=== PATIENT | male | born 1975 | race Hispanic/Latino ===

== ENCOUNTER 2019-04-13 10:50 | Emergency (ER) | payer OTHER ==
[2019-04-13] MEDS ORDERED: KETOROLAC TROMETHAMINE 60 MG/2 ML VIAL ONE (11:56)
[2019-04-13] MEDS ORDERED: LIDOCAINE 5% TOPICAL PATCH TP ONE (11:56)
[2019-04-13] MEDS ORDERED: DIAZEPAM 5 MG TABLET ONE (11:56)
== END 2019-04-13 12:26 | disposition home or self-care (01) ==
LOC: EDH 10:50
DX: M62.830 Muscle spasm of back (principal)
CPT/HCPCS: 96372; 99283; J1885

== ENCOUNTER 2025-02-09 07:29 | Emergency (ER) | payer BC, OTHER ==
[~2025-02-09] VITALS: Ht 177.8 cm; Wt 104.3 kg
--- NOTE | 2025-02-09 07:40 | ERN ---
General Chief Complaint: Back Pain-No Injury Stated Complaint: CHRONIC BACK PAIN, RT SCIATICA Time Seen by MD: 07:31 Source: patient History of Present Illness Initial Comments PATIENT IS A 50-YEAR-OLD MALE COMING IN COMPLAINING OF RIGHT-SIDED LOWER BACK AND RIGHT-SIDED GLUTEAL DISCOMFORT WERE IN THE IN THE RIGHT LEG. PER PATIENT HE HAS A HISTORY OF RIGHT-SIDED SCIATICA AND USUALLY GETS INJECTIONS FOR THE PAIN. ON THIS OCCASION THE FLARE-UP BEGAN TWO DAYS AGO IN HIS HAS BEEN PROGRESSIVELY GETTING WORSE. Allergies: Coded Allergies: No Known Allergies (Unverified Allergy, Unknown, 02/09/25) Past Medical History Past Medical History: Other Medical History Other: CHRONINC BACK PAIN Past Surgical History: Other Surgical History Other: HERNIA ROS Dictation CONSTITUTIONAL: NO CHILLS, NO FEVER, NO WEAKNESS, NO DIAPHORESIS, NO MALAISE. HEAD/FACE: NO SIGNS OF TRAUMA. EENT: NO EYE PAIN, NO BLURRED VISION, NO TEARING, NO DOUBLE VISION, NO EAR PAIN, NO EAR DISCHARGE, NO NOSE PAIN, NO NASAL CONGESTION, NO THROAT PAIN, NO THROAT SWELLING, NO MOUTH PAIN. RESPIRATORY: NO COUGH, NO ORTHOPNEA, NO SOB, NO STRIDOR, NO WHEEZING. CARDIOVASCULAR: NO CHEST PAIN, NO EDEMA, NO PALPITATIONS, NO SYNCOPE. GASTROINTESTINAL/ABDOMINAL: NO ABDOMINAL PAIN, NO CONSTIPATION, NO DIARRHEA, NO NAUSEA, NO VOMITING. GENITOURINARY: NO ABNORMAL DISCHARGE, NO DYSURIA, NO FREQUENT URINATION, NO HEMATURIA. NO COMPLAINTS OF PAIN IN THE GENITALS. MUSCULOSKELETAL: NO BACK PAIN, NO GOUT, NO JOINT PAIN, NO JOINT SWELLING, NO MUSCLE PAIN, NO MUSCLE STIFFNESS, NO NECK PAIN. INTEGUMENTARY: NO CHANGE IN COLOR, NO CHANGE IN HAIR/NAILS, NO DRYNESS, NO LESION, NO LUMPS, NO RASH. NEUROLOGICAL/PSYCH: NO ANXIETY, NOT DEPRESSED, NO EMOTIONAL PROBLEM, NO HEADACHE, NO NUMBNESS, NO PRE-EXISTING DEFICIT, NO HISTORY OF SEIZURES, NO TREMORS, NO WEAKNESS. HEMATOLOGIC/LYMPHATIC: NOT ANEMIC, NO HISTORY OF BLOOD CLOTS, NO APPARENT BLEEDING, NO BRUISING, GLANDS NOT SWOLLEN. ALL SYSTEMS NEGATIVE, EXCEPT NOTED. Physical Exam Physical Exam Dictation VITAL SIGNS: REVIEWED. GENERAL APPEARANCE: ALERT, ORIENTED X3, NO ACUTE DISTRESS, OBESE. HEAD AND FACE: NON-TRAUMATIC. EYES: PERRL, PINK CONJUNCTIVAS, EYELID NO TRAUMA, ANTERIOR CHAMBER CLEAR. EARS: PINNAS INTACT AND NO SIGNS OF TRAUMA OR ERYTHEMA. EAR CANALS CLEAR AND NO DISCHARGE. TMS NO ERYTHEMA. NOSE: NO DISCHARGE, NO BLEEDING. OROPHARYNX: MOUTH NORMAL, TEETH NO CARIES, TONGUE PINK. PHARYNX CLEAR, NO ERYTHEMA. TONSILS NO EXUDATES, NO ABSCESSES NOTED. MUCOUS MEMBRANE MOIST. NECK: SUPPLE, NON-TENDER, NO THYROMEGALY, NO MASSES, NO JVD, NO BRUITS. BREAST: DEFERRED. CHEST: NO TENDERNESS, NO CREPITUS, NO PARADOXICAL MOVEMENT, NO RETRACTIONS. LUNGS: CLEAR, WELL-VENTILATED, SYMMETRIC, NO RALES, NO WHEEZING, NO RHONCHI, NO STRIDOR, GOOD BREATH SOUNDS BILATERALLY. HEART: REGULAR RATE, REGULAR RHYTHM, NO MURMUR, NO GALLOPS. VASCULAR: NO PERIPHERAL EDEMA. ABDOMEN: SOFT, POSITIVE BOWEL SOUNDS, NONDISTENDED, NO GUARDING, NONTENDER, NO REBOUND, NO MASSES NO HEPATOMEGALY, NO SPLENOMEGALY, NO WARE'S SIGN, NO HERNIAS. RECTAL: DEFERRED. GENITAL: DEFERRED. NEUROLOGICAL: NORMAL SPEECH, GROSS MOTOR FUNCTION INTACT, GROSS SENSORY FUNCTION INTACT. MUSCULOSKELETAL: NECK NONTENDER, FULL RANGE OF MOTION, BACK NONTENDER, FULL RANGE OF MOTION. EXTREMITIES: NONTENDER, FULL RANGE OF MOTION. SKIN: COLOR PINK, DRY, NO TURGOR, NO RASH, NO LACERATIONS, NO ABRASIONS, NO CONTUSIONS. LYMPHATICS: DEFERRED. Results Laboratory and Microbiology Labs Reviewed?: Yes MDM MDM: DIFFERENTIAL DIAGNOSIS: SCIATICA, CHRONIC BACK PAIN, RATIONALE: TESTS CONSIDERED AND ORDERED SECONDARY TO SHARED DECISION MAKING INCLUDE: PREVIOUS OUTSIDE RECORDS REVIEWED: OLD ER VISITS. RISK OF COMPLICATION AND/OR MORBIDITY OR MORTALITY OF PATIENT MANAGEMENT: NONE MEDICATIONS-PER MEDICATION RECONCILIATION NEED FOR HOSPITALIZATION: PATIENT DOES NOT MEET CRITERIA FOR HOSPITALIZATION. NEED FOR EMERGENCY MAJOR/MINOR SURGERY: NO PATIENT IS A 50-YEAR-OLD MALE COMING IN COMPLAINING OF RIGHT-SIDED LEG AND LOWER BACK DISCOMFORT. PATIENT STATES THAT THIS IS A CHRONIC PAIN THAT HE HAS BEEN HAVING ON AND OFF FOR MANY YEARS. HE STATES THAT HE USUALLY GETS AN INJECTION IN HIS FEELS BETTER. HE HAS NOT FOLLOWED UP WITH THE ORTHOPEDICS YET. PATIENT RECEIVED AN ANTISPASMODICS AND ANTI-INFLAMMATORIES HE WILL BE DISCHARGED IN STABLE CONDITION I DID ADVISED HIM APPROPRIATE FOLLOW UP WITH TEACHER VISUALLY IMPAIRED FOR ONGOING MANAGEMENT AND POSSIBLE REHABILITATION AND PHYSICAL THERAPY. ED Course Orders Procedure Category Date Status Time Orphenadrine Citrate PHA 02/09/25 Complete (Norflex) 08:00 Triamcinolone Acet PHA 02/09/25 Complete 40mg/Ml 1ml (Kenalog 08:00 Current Medications Medications (Trade) Dose Ordered Sig/Bull Route PRN Reason Start Time Stop Time Status Last Admin Dose Admin Orphenadrine Citrate (Norflex) 60 mg ONCE ONCE IM 02/09/25 08:00 02/09/25 08:01 DC 02/09/25 07:42 Triamcinolone Acetonide (Kenalog 40) 40 mg ONCE ONCE IM 02/09/25 08:00 02/09/25 08:01 DC 02/09/25 07:42 Vital Signs Date Time Temp Pulse Resp B/P (MAP) Pulse Ox O2 Delivery O2 Flow Rate FiO2 02/09/25 07:35 97.9 69 16 173/98 99 Room Air* 0 21 02/09/25 07:31 97.9 69 16 173/98 99 Room Air 0 DX & DISP Disposition: Discharge Departure Impression: Primary Impression: Sciatica of right side Condition: Stable Scripts Naproxen (Naproxen) 500 Mg Tablet 1 TAB PO BID for pain for 7 Days, #14 TAB 0 Refills Prov: EILEEN SCHROEDER MD 02/09/25 Methocarbamol (Robaxin) 750 Mg Tab 1 TAB PO BID for 7 Days, #14 TAB 0 Refills Prov: EILEEN SCHROEDER MD 02/09/25 Additional Instructions: FOLLOW-UP WITH PRIMARY CARE PROVIDER IN 1 TO 2 DAYS. TAKE MEDICATIONS DIRECTED HERE IN THE EMERGENCY ROOM. OKAY TO CONTINUE HOME MEDICATIONS UNLESS OTHERWISE DISCUSSED DURING YOUR VISIT IN THE EMERGENCY ROOM TODAY. RETURN TO YOUR NEAREST EMERGENCY ROOM IF SYMPTOMS WORSEN OR IF THERE IS NO IMPROVEMENT. CALL 911 IF YOU NEED IMMEDIATE ASSISTANCE. TAKE TYLENOL [id number] NEEDED AND IF NO CONTRAINDICATIONS ARE PRESENT. INCREASE ORAL HYDRATION. A WOUND CULTURE OR URINE CULTURE WAS ORDERED HERE IN THE EMERGENCY ROOM DEPARTMENT PLEASE FOLLOW-UP WITH PRIMARY CARE PROVIDER AND ADVISE THEM TO GET REPORTS FROM OUR FACILITY. IF YOU HAD ANY PRINCESS WRAP/SPLINTS THAT WERE APPLIED HERE, PLEASE DO NOT REMOVE THEM UNTIL YOU SEE YOUR PRIMARY CARE OR SPECIALTY. REFERRALS: Referrals: DANIAL MEEK (PCP) TAMI RALPH MD Time of Disposition: 08:15 EILEEN SCHROEDER MD Feb 09, 2025 07:40
[2025-02-09] MEDS: TRIAMCINOLONE ACETONIDE 40 MG/ML 1ML VIAL IM ONE (07:42)
[2025-02-09] MEDS: ORPHENADRINE 60MG/2ML IM ONE (07:42)
[2025-02-09] MEDS ORDERED: METH-662 PO (08:16)
[2025-02-09] MEDS ORDERED: NAPR-1194 PO (08:16)
[2025-02-09 08:30] VITALS: BP 148/78; PULSE 65; RESP 16; TEMP 98.2; O2SAT 98
[2025-02-10] MEDS ORDERED: HYDR-4060 PO (04:05)
== END 2025-02-09 08:32 | disposition home or self-care (01) ==
LOC: EDH 07:29
DX: M54.31 Sciatica, right side (principal); Z98.890 Other specified postprocedural states
CPT/HCPCS: 99284; 96372 ×2; J3301; J2360

== ENCOUNTER 2025-02-10 02:42 | Emergency (ER) | payer BC ==
[~2025-02-10] VITALS: Ht 177.8 cm; Wt 109.3 kg
[~2025-02-10 02:42] MED LIST: METH-662 PO; NAPR-1194 PO
[2025-02-10] MEDS: LACTATED RINGERS 1000ML 1,000 ML IV ONE (03:09)
--- NOTE | 2025-02-10 03:38 | ERN ---
General Chief Complaint: Back Pain-No Injury Stated Complaint: C/O RT LOWER BACK PAIN RADIATING DOWN RT LEG Time Seen by MD: 02:44 History of Present Illness Initial Comments 50M presents for severe, 01/23, R sided lower back pain that radiates down the back of the right leg to behind the knee. Patient has had this on and off in the past, diagnosed with sciatic nerve pain. Patient came to this ED yesterday. He received NSAIDS and steroids. He reports minimal relief. He comes in tonight with unbearable pain. He denies any midline tenderness, fevers, drug abuse, urinary changes or incontinence, numbness, paraesthesias, or motor dysfunction. Allergies: Coded Allergies: No Known Allergies (Unverified Allergy, Unknown, 02/09/25) Home Meds Active Scripts Hydrocodone/Acetaminophen (Hydrocodon-Acetaminophen 5-325) 5 Mg-325 Mg Tablet, 1-2 TAB PO Q6HPRN PRN for pain for 5 Days, #30 TAB 0 Refills Prov:VAL PONCE DO 02/10/25 Naproxen (Naproxen) 500 Mg Tablet, 1 TAB PO BID for pain for 7 Days, #14 TAB 0 Refills Prov:EILEEN SCHROEDER MD 02/09/25 Methocarbamol (Robaxin) 750 Mg Tab, 1 TAB PO BID for 7 Days, #14 TAB 0 Refills Prov:EILEEN SCHROEDER MD 02/09/25 Past Medical History Past Medical History: No Pertinent History Medical History Other: CHRONINC BACK PAIN Past Surgical History: None Surgical History Other: HERNIA ROS Dictation CONSTITUTIONAL: No chills, no fever, no weakness, no diaphoresis, no malaise. HEAD/FACE: No signs of trauma. EENT: No eye pain, no blurred vision, no tearing, no double vision, no ear pain, no ear discharge, no nose pain, no nasal congestion, no throat pain, no throat swelling, no mouth pain. RESPIRATORY: No cough, no orthopnea, no SOB, no stridor, no wheezing. CARDIOVASCULAR: No chest pain, no edema, no palpitations, no syncope. GASTROINTESTINAL/ABDOMINAL: No abdominal pain, no constipation, no diarrhea, no nausea, no vomiting. GENITOURINARY: No abnormal discharge, no dysuria, no frequent urination, no hematuria. No complaints of pain in the genitals. MUSCULOSKELETAL: Right-sided lower back pain radiating down to the knee INTEGUMENTARY: No change in color, no change in hair/nails, no dryness, no lesion, no lumps, no rash. NEUROLOGICAL/PSYCH: No anxiety, not depressed, no emotional problem, no headache, no numbness, no pre-existing deficit, no history of seizures, no tremors, no weakness. HEMATOLOGIC/LYMPHATIC: Not anemic, no history of blood clots, no apparent bleeding, no bruising, glands not swollen. All Systems Negative, Except as Noted. Physical Exam Physical Exam Dictation VITAL SIGNS: Reviewed. GENERAL APPEARANCE: Alert, oriented x3, severe distress due to pain HEAD AND FACE: Non-traumatic. EYES: PERRL, pink conjunctivas, eyelid no trauma, anterior chamber clear. EARS: Pinnas intact and no signs of trauma or erythema. Ear canals clear and no discharge. TMs no erythema. NOSE: No discharge, no bleeding. OROPHARYNX: Mouth normal, teeth no caries, tongue pink. Pharynx clear, no erythema. Tonsils no exudates, no abscesses noted. Mucous membrane moist. NECK: Supple, non-tender, no thyromegaly, no masses, no JVD, no bruits. BREAST: Deferred. CHEST: No tenderness, no crepitus, no paradoxical movement, no retractions. LUNGS: Clear, well-ventilated, symmetric, no rales, no wheezing, no rhonchi, no stridor, good breath sounds bilaterally. HEART: Regular rate, regular rhythm, no murmur, no gallops. VASCULAR: No peripheral edema. ABDOMEN: Soft, positive bowel sounds, nondistended, no guarding, nontender, no rebound, no masses no hepatomegaly, no splenomegaly, no Pelayo's sign, no hernias. RECTAL: Deferred. GENITAL: Deferred. NEUROLOGICAL: Normal speech, gross motor function intact, gross sensory function intact. MUSCULOSKELETAL: Neck nontender, full range of motion, back nontender, full range of motion. EXTREMITIES: Nontender, full range of motion. SKIN: Color pink, dry, no turgor, no rash, no lacerations, no abrasions, no contusions. LYMPHATICS: Deferred. MDM CC: Severe right-sided back pain Historian: Patient Comorbidities: None Limitations by social determinants of health: None Differential diagnosis: Sciatica, cauda equina, MSK type pain Limitations by social determinants of health: None Vital signs are stable No red flags for back pain on clinical exam. He is able to flex and extend the hips, knees, ankles. Normal sensation to the inner thighs. No saddle anesthesia. Normal reflexes. No midline tenderness to the back. No red flags on history. No signs of cancer, fevers or infectious process. No motor dysfunction. Neurovascularly intact. No imaging indicated. Symptoms most consistent with severe sciatica. Patient received IV Dilaudid for pain control and IV Toradol. Multiple reassessments. On final re-evaluation he is ambulatory. He reports improvement of symptoms. He has already been discharged in the past with Robaxin and naproxen. I will add Pricedale tabs for severe pain as well as other conservative management. We will recommend he follows up as an outpatient. Patient agrees with the plan. ED Course Orders Procedure Category Date Status Time Lactated Ringers PHA 02/10/25 Complete 1000ml (Lactated 03:00 Hydromorphone 1 Mg PHA 02/10/25 Complete Inj (Dilaudid 1mg Inj 03:00 Ketorolac PHA 02/10/25 Complete Tromethamine 15mg/Ml 03:00 Current Medications Medications (Trade) Dose Ordered Sig/Bull Route PRN Reason Start Time Stop Time Status Last Admin Dose Admin Hydromorphone HCl (DiLAUDid 1MG INJ) 2 mg ONCE ONCE IVP 02/10/25 03:00 02/10/25 03:01 DC 02/10/25 03:08 Ketorolac Tromethamine (toRADol) 30 mg ONCE ONCE IV 02/10/25 03:00 02/10/25 03:01 DC 02/10/25 03:08 Lactated Ringer's 1,000 ml @ 0 mls/hr ONCE ONCE IV 02/10/25 03:00 02/10/25 03:01 DC 02/10/25 03:09 Vital Signs Date Time Temp Pulse Resp B/P (MAP) Pulse Ox O2 Delivery O2 Flow Rate FiO2 02/10/25 04:27 98.2 64 18 138/88 99 Room Air* 0 21 02/10/25 03:09 97.9 68 20 158/99 99 Room Air* 0 21 02/10/25 02:45 97.5 68 20 154/97 99 Room Air DX & DISP Disposition: Discharge Departure Impression: Primary Impression: Sciatica of right side Condition: Stable Scripts Hydrocodone/Acetaminophen (Hydrocodon-Acetaminophen 5-325) 5 Mg-325 Mg Tablet 1-2 TAB PO Q6HPRN PRN for pain for 5 Days, #30 TAB 0 Refills Prov: VAL PONCE DO 02/10/25 Additional Instructions: Your symptoms are consistent with sciatic nerve pain. As we discussed, most people symptoms will improve with time. Supple you have already been prescribed Robaxin, which is a muscle relaxer, and naproxen, which is a nonsteroidal anti-inflammatory pain medication. You can take each of these medications twice per day. You can take these medications while at work. You can also take 1000 mg of [id number] Tylenol for pain. For severe pain, I have prescribed P[place]ed[place] tabs. You can take 1-2 tabs every 6 hours as needed for severe pain. I do not recommend going to work or operating heavy machinery with this medication. Please note that there are 325 mg of Tylenol in the Pricedale tabs. Do not take more than 4000 mg of Tylenol per day in total (including the Pricedale tabs and [id number] Tylenol). I also recommend using a heating pad applied your back. You can also try [id number] patches such as lidocaine or Salonpas. Talk to your primary doctor about your symptoms. You may need physical therapy, imaging, or further treatment or referrals to specialists. Please return to the emergency department if you have any concerning symptoms. Referrals: SELF,REFERRAL (PCP) VAL PONCE DO Feb 10, 2025 03:38
[2025-02-10] MEDS ORDERED: HYDR-4060 PO (04:05)
[2025-02-10 04:27] VITALS: BP 138/88; PULSE 64; RESP 18; TEMP 98.2; O2SAT 99
== END 2025-02-10 04:28 | disposition home or self-care (01) ==
LOC: EDH 02:42
DX: M54.41 Lumbago with sciatica, right side (principal); G89.29 Other chronic pain; Z98.890 Other specified postprocedural states
CPT/HCPCS: 99284; 96374; 96361; 96375; J1885; J7120; J1171